=== PATIENT | male | born 1965 | race African-American/Black ===

== ENCOUNTER 2020-06-12 20:30 | Emergency (ER) | payer SELFPAY ==
[~2020-06-12] VITALS: Ht 172.7 cm; Wt 100.0 kg
[2020-06-12 20:35] VITALS: BP 126/74
== END 2020-06-12 23:30 | disposition left against medical advice (07) ==
LOC: ER 20:30
DX: Z53.21 Procedure and treatment not carried out due to patient leaving prior to being seen by health care provider (principal)
CPT/HCPCS: 93005

== ENCOUNTER 2024-07-12 15:04 | Emergency (ER) | payer OTHER ==
[~2024-07-12] VITALS: Ht 177.8 cm; Wt 85.0 kg
[2024-07-12 15:08] VITALS: O2SAT 96
[2024-07-12] MEDS ORDERED: HYDR20TA24 MT (15:12)
[2024-07-12] MEDS ORDERED: IBUP-2028 MT (17:47)
[2024-07-12] MEDS ORDERED: HYDR-4001 MT (17:47)
[2024-07-12] MEDS ORDERED: LIDO700A15 TP (17:47)
[2024-07-12] MEDS ORDERED: TOPUD PO (17:47)
[2024-07-12 18:23] VITALS: TEMP 98.6
[2024-07-12] MEDS: IBUPROFEN 400MG TABLET PO ONE (18:23)
[2024-07-12] MEDS: ACETAMINOPHEN 325MG TABLET PO ONE (18:23)
[2024-07-12 18:40] VITALS: BP 148/82; PULSE 75; RESP 16; O2SAT 98
== END 2024-07-12 18:41 | disposition home or self-care (01) ==
LOC: ER 15:04
DX: S76.111A Strain of right quadriceps muscle, fascia and tendon, initial encounter (principal); I10 Essential (primary) hypertension; W05.1XXA Fall from non-moving nonmotorized scooter, initial encounter; Y93.89 Activity, other specified; Y92.89 Other specified places as the place of occurrence of the external cause; Y99.8 Other external cause status
CPT/HCPCS: 73562; 99283; Z7610; L1830